=== PATIENT | female | born 1975 | race Caucasian/White ===

== ENCOUNTER 2023-01-08 16:26 | Emergency (ER) | payer BC ==
[~2023-01-08] VITALS: Ht 165.1 cm; Wt 124.0 kg
[~2023-01-08 16:26] MED LIST: FLEXERIL10 MG PO; NORCO 5-325 TA1 EACH PO
[2023-01-08] MEDS ORDERED: HYDROCHLOROTH12.5 MG PO (16:44)
[2023-01-08] MEDS ORDERED: BUPROPION XL300 MG PO (16:44)
[2023-01-08] MEDS ORDERED: LOSARTAN POTASS50 MG PO (16:45)
[2023-01-08 17:32] VITALS: BP 134/101
== END 2023-01-08 17:32 | disposition home or self-care (01) ==
LOC: ED 16:26
DX: T78.40XA Allergy, unspecified, initial encounter (principal); I10 Essential (primary) hypertension; F17.200 Nicotine dependence, unspecified, uncomplicated; Z88.8 Allergy status to other drugs, medicaments and biological substances; Z79.899 Other long term (current) drug therapy
CPT/HCPCS: 99283